=== PATIENT | male | born 1935 | race Caucasian/White ===

== ENCOUNTER 2017-01-01 12:13 | Observation (INO) | payer OTHER ==
--- NOTE | 2017-01-01 13:57 | EDPHY ---
H & P Time Seen by Provider: 01/01/17 12:27 Smoking Status: Never smoked Constitutional: Initial Vital Signs Temperature (C) 36.5 C 01/01/17 12:14 Heart Rate 78 01/01/17 12:14 Respiratory Rate 16 01/01/17 12:14 Blood Pressure 157/81 H 01/01/17 12:14 O2 Sat (%) 90 L 01/01/17 12:14 O2 Delivery Mode Room Air Allergies/Adverse Reactions: Sulfa (Sulfonamide Antibiotics) Allergy (Unknown, Verified 05/06/13 01:11) Unknown Home Medications: Medication Instructions Recorded CALCIUM 1,200 MG TABLET CHEW 10/18/09 Folic Acid 10/18/09 Lisinopril 10/18/09 VITAMIN A & D 10/18/09 COUMADIN 10/20/09 PRAVASTATIN SODIUM 05/20/10 VIT E ACETATE/NONOXYNOL/TAVARES V 10/28/10 Metaxalone [Skelaxin 800 mg (RX)] 800 mg PO TID PRN #10 tab 05/06/13 MDM/Departure - Depart Referrals: Dick Bhandari DO [Primary Care Provider] - As per Instructions
--- NOTE | 2017-01-01 14:26 | EDPHY ---
H & P Stated Complaint: S/F ON 12/20, HERE TODAY L FOOT PAIN/SWELLING Time Seen by Provider: 01/01/17 12:27 HPI/ROS: CHIEF COMPLAINT: left leg pain HISTORY OF PRESENT ILLNESS: 81-year-old male presents emergency department complaining of worsening left leg pain. 1 week ago the patient slipped while in the bathroom and scraped his scruggs. He was seen by a nurse practitioner 5 days ago and placed on Keflex for his cellulitis, he was then seen 3 days ago for recheck. Patient reports over the last 2 days his pain, swelling have increased, redness has not worsened. He denies fevers or chills, no chest pain or shortness of breath. Patient has a history of blood clots in this left leg and PE over 20 years ago, he takes Coumadin daily for this. Patient reports most of his pain is in his lateral foot, worse with weight-bearing that improved after he has walked on it for a few minutes. REVIEW OF SYSTEMS: A comprehensive 10 point review of systems is otherwise negative aside from elements mentioned in the history of present illness. Source: Patient, Family Exam Limitations: No limitations - Personal History Current Tetanus/Diphtheria Vaccine: Yes Current Tetanus Diphtheria and Acellular Pertussis (TDAP): Yes - Medical/Surgical History Hx Asthma: No Hx Chronic Respiratory Disease: No Hx Diabetes: No Hx Cardiac Disease: No Hx Renal Disease: No Hx Cirrhosis: No Hx Alcoholism: No Hx HIV/AIDS: No Hx Splenectomy or Spleen Trauma: No Other PMH: PMH- DVT. PSH- THROAT, TONSICLECTOMY, ORTHO - Social History Smoking Status: Never smoked Constitutional: Initial Vital Signs Temperature (C) 36.5 C 01/01/17 12:14 Heart Rate 78 01/01/17 12:14 Respiratory Rate 16 01/01/17 12:14 Blood Pressure 157/81 H 01/01/17 12:14 O2 Sat (%) 90 L 01/01/17 12:14 O2 Delivery Mode Room Air Allergies/Adverse Reactions: Sulfa (Sulfonamide Antibiotics) Allergy (Unknown, Verified 05/06/13 01:11) Unknown Home Medications: Medication Instructions Recorded CALCIUM 1,200 MG TABLET CHEW 10/18/09 Folic Acid 10/18/09 Lisinopril 10/18/09 VITAMIN A & D 10/18/09 COUMADIN 10/20/09 PRAVASTATIN SODIUM 05/20/10 VIT E ACETATE/NONOXYNOL/TAVARES V 10/28/10 Metaxalone [Skelaxin 800 mg (RX)] 800 mg PO TID PRN #10 tab 05/06/13 Medical Decision Making - Diagnostics Imaging: Foot and ankle x-ray independently reviewed by me- Impression: Soft tissue injury. No acute fracture. Dictated By: Brody Willingham MD Left lower leg ultrasound- Impression: No deep venous thrombosis in the left lower extremity. Findings discussed with Amy Juarez NP at 16:19 hour, 01/01/2017. Dictated By: Yunior Gil MD ED Course/Re-evaluation: IV established, CBC, chemistry panel, INR obtained, x-ray of left foot and ankle ordered which show no evidence of fracture, ultrasound left lower extremity ordered to rule out DVT. Vital signs are stable, he is afebrile. INR is 3.45, CBC and chemistry panel are unremarkable, ultrasound of left lower extremity is negative for DVT. Patient will be admitted for cellulitis of his left lower extremity that has failed cephalexin outpatient therapy. There is no evidence for septic joint. Patient is comfortable with this plan. - Data Points Laboratory Results: Laboratory Results 01/01/17 13:57 01/01/17 13:52 01/01/17 01/01/17 01/01/17 13:57 13:57 13:52 WBC 7.09 10^3/uL 10^3/uL (3.80-9.50) RBC 4.73 10^6/uL 10^6/uL (4.40-6.38) Hgb 16.4 g/dL g/dL (13.7-17.5) Hct 46.3 % % (40.0-51.0) MCV 97.9 fL fL (81.5-99.8) MCH 34.7 pg H pg (27.9-34.1) MCHC 35.4 g/dL g/dL (32.4-36.7) RDW 13.4 % % (11.5-15.2) Plt Count 156 10^3/uL 10^3/uL (150-400) MPV 10.8 fL fL (8.7-11.7) Neut % (Auto) 72.2 % % (39.3-74.2) Lymph % (Auto) 18.6 % % (15.0-45.0) [place] % (Auto) 6.8 % % (4.5-13.0) Eos % (Auto) 1.7 % % (0.6-7.6) Baso % (Auto) 0.6 % % (0.3-1.7) Nucleat RBC Rel Count 0.0 % % (0.0-0.2) Absolute Neuts (auto) 5.12 10^3/uL 10^3/uL (1.70-6.50) Absolute Lymphs (auto) 1.32 10^3/uL 10^3/uL (1.00-3.00) Absolute Monos (auto) 0.48 10^3/uL 10^3/uL (0.30-0.80) Absolute Eos (auto) 0.12 10^3/uL 10^3/uL (0.03-0.40) Absolute Basos (auto) 0.04 10^3/uL 10^3/uL (0.02-0.10) Absolute Nucleated RBC 0.00 10^3/uL 10^3/uL (0-0.01) Immature Gran % 0.1 % % (0.0-1.1) Immature Gran # 0.01 10^3/uL 10^3/uL (0.00-0.10) PT 35.4 SEC H SEC (12.0-15.0) INR 3.46 H (0.83-1.16) Sodium 141 mEq/L mEq/L (134-144) Potassium 3.9 mEq/L mEq/L (3.5-5.2) Chloride 108 mEq/L mEq/L (97-110) Carbon Dioxide 23 mEq/l mEq/l (22-31) Anion Gap 10 mEq/L mEq/L (8-16) BUN 20 mg/dL mg/dL (7-23) Creatinine 0.9 mg/dL mg/dL (0.7-1.3) Estimated GFR > 60 Glucose 111 mg/dL H mg/dL (70-100) Calcium 8.7 mg/dL mg/dL (8.5-10.4) Departure - Departure Disposition: [facility] Clinical Impression: Left leg cellulitis Condition: Good
[2017-01-01 14:42] LABS: % IMMATURE GRANULYOCYTES 0.1 % (0.0-1.1); ABSOLUTE IMMATURE GRANULOCYTES 0.01 10^3/uL (0.00-0.10); ADD DIFF? NO; ADD MORPH? NO; ADD SCAN? NO; ATYPICAL LYMPHOCYTE FLAG 0 (0-99); FRAGMENT RBC FLAG 0 (0-99); HEMATOCRIT 46.3 % (40.0-51.0); HEMOGLOBIN 16.4 g/dL (13.7-17.5); LEFT SHIFT FLG 0 (0-99); LIPEMIA HEMOLYSIS FLAG 90 (0-99); MEAN CELL HEMOGLOBIN 34.7 pg (27.9-34.1); MEAN CELL HEMOGLOBIN CONCENTR. 35.4 g/dL (32.4-36.7); MEAN CELL VOLUME 97.9 fL (81.5-99.8); MEAN PLATELET VOLUME 10.8 fL (8.7-11.7); PLATELET CLUMPS FLAG 0 (0-99); PLATELET COUNT 156 10^3/uL (150-400); RED BLOOD CELL COUNT 4.73 10^6/uL (4.40-6.38); RED CELL DISTRIBUTION WIDTH 13.4 % (11.5-15.2)
[2017-01-01 14:54] LABS: INR 3.46 (0.83-1.16); PROTIME(PATIENT) 35.4 SEC (12.0-15.0)
[2017-01-01 15:04] LABS: ANION GAP 10 mEq/L (8-16); CALCIUM 8.7 mg/dL (8.5-10.4); CARBON DIOXIDE 23 mEq/l (22-31); CHLORIDE 108 mEq/L (97-110); CREATININE 0.9 mg/dL (0.7-1.3); GLOMERULAR FILTRATION RATE > 60; GLUCOSE 111 mg/dL (70-100); POTASSIUM 3.9 mEq/L (3.5-5.2); SODIUM 141 mEq/L (134-144)
[2017-01-01] MEDS ORDERED: NON-FORMULARY NEW DRUG (Pravastatin Sodium [Pravachol] 80 MG) PO SCH (16:00)
[2017-01-01] MEDS ORDERED: VANCOMYCIN 1.25 GM in D5W 250 ML IV ONE (16:40)
--- NOTE | 2017-01-01 17:52 | PDGENHP ---
History and Physical - Chief Complaint Acute leg pain - History of Present Illness Primary care provider: Dr. Bhandari HPI: 81-year-old male presents with acute leg pain located in the left lateral foot, characterized as sharp, exacerbated by weight-bearing, alleviated by resting and elevation. Patient reports that the onset of symptoms approximately 1 week ago when he fell in the shower/tub and scraped the proximal aspect of his left lower leg. He began experiencing some swelling and erythema thereafter. He now has some associated swelling, tenderness, pain. Duration has been persistent since that time and he was seen by Dr. Cox in the [facility]. Was initiated on Keflex 5 days ago and he has not noted any particular improvement. His otherwise been adherent to all of his home medications and denies any other complaints. History Information - Allergies/Home Medication List Allergies/Adverse Reactions: Sulfa (Sulfonamide Antibiotics) Allergy (Unknown, Verified 05/06/13 01:11) Unknown Home Medications: Herbals/Supplements -Info Only 1 ea PO DAILY 10/18/09 [Last Taken 12/31/16] Warfarin Sodium [Coumadin 5MG (*)] 5 mg PO MOWEFR@16 10/20/09 [Last Taken ] Pravastatin Sodium [Pravachol] 80 mg PO DAILY@16 05/20/10 [Last Taken 12/31/16] Calcium Carb W/Vit D [Calcium Carb W/Vit D 500/200 (*)] 500 mg PO BID 01/01/17 [ Last Taken 12/31/16] Cephalexin [Keflex (*)] 500 mg PO QID 01/01/17 [Last Taken 01/01/17 2 DOSES] Warfarin Sodium [Coumadin 5MG (*)] 2.5 mg PO SUTUTHSA@16 01/01/17 [Last Taken ] I have personally reviewed and updated: family history, medical history, social history, surgical history - Past Medical History DVT (1995), hypertension, hyperlipidemia, pulmonary embolism (2008) Additional medical history: Zenker's diverticulum. Osteoporosis - Surgical History Additional surgical history: Tonsillectomy. Ankle surgery - Family History Additional family history: Father with CHF at age 77 - Social History Smoking Status: Former smoker Alcohol Use: Occasionally Drug Use: None Additional social history: Works en[employer], recently had a negative pulmonary evaluation at [facility] Review of Systems ROS: 10pt was reviewed & negative except for what was stated in HPI & below Skin: Reports: other (Erythema, edema, tenderness left lower extremity) Physical Exam Temp Pulse Resp BP Pulse Ox 36.5 C 59 L 18 175/95 H 92 01/01/17 12:14 01/01/17 17:31 01/01/17 17:31 01/01/17 17:31 01/01/17 17:31 Constitutional: no apparent distress, appears nourished, not in pain, No chronically ill appearing Eyes: PERRL, anicteric sclera, EOMI Ears, Nose, Mouth, Throat: moist mucous membranes, hearing normal, ears appear normal, no oral mucosal ulcers Cardiovascular: regular rate and rhythym, no murmur, rub, or gallop, edema (1+ left lower extremity edema) Respiratory: no respiratory distress, no rales or rhonchi, clear to auscultation Gastrointestinal: normoactive bowel sounds, soft, non-tender abdomen, no palpable masses Skin: other (Blanching erythema left lower extremity on the anterior aspect of his scruggs as well as the lateral aspect of his left foot, tender, scabbed abrasion inferior to his knee) Musculoskeletal: other (Full range of motion left ankle and left knee without any pain) Neurologic: AAOx3, sensation intact bilaterally, No weakness Psychiatric: interacting appropriately, not anxious, not encephalopathic, thought process linear Lab Data & Imaging Review 01/01/17 13:57 01/01/17 13:52 WBC 7.09 10^3/uL (3.80-9.50) 01/01/17 13:57 RBC 4.73 10^6/uL (4.40-6.38) 01/01/17 13:57 Hgb 16.4 g/dL (13.7-17.5) 01/01/17 13:57 Hct 46.3 % (40.0-51.0) 01/01/17 13:57 MCV 97.9 fL (81.5-99.8) 01/01/17 13:57 MCH 34.7 pg (27.9-34.1) H 01/01/17 13:57 MCHC 35.4 g/dL (32.4-36.7) 01/01/17 13:57 RDW 13.4 % (11.5-15.2) 01/01/17 13:57 Plt Count 156 10^3/uL (150-400) 01/01/17 13:57 MPV 10.8 fL (8.7-11.7) 01/01/17 13:57 Neut % (Auto) 72.2 % (39.3-74.2) 01/01/17 13:57 Lymph % (Auto) 18.6 % (15.0-45.0) 01/01/17 13:57 [place] % (Auto) 6.8 % (4.5-13.0) 01/01/17 13:57 Eos % (Auto) 1.7 % (0.6-7.6) 01/01/17 13:57 Baso % (Auto) 0.6 % (0.3-1.7) 01/01/17 13:57 Nucleat RBC Rel Count 0.0 % (0.0-0.2) 01/01/17 13:57 Absolute Neuts (auto) 5.12 10^3/uL (1.70-6.50) 01/01/17 13:57 Absolute Lymphs (auto) 1.32 10^3/uL (1.00-3.00) 01/01/17 13:57 Absolute Monos (auto) 0.48 10^3/uL (0.30-0.80) 01/01/17 13:57 Absolute Eos (auto) 0.12 10^3/uL (0.03-0.40) 01/01/17 13:57 Absolute Basos (auto) 0.04 10^3/uL (0.02-0.10) 01/01/17 13:57 Absolute Nucleated RBC 0.00 10^3/uL (0-0.01) 01/01/17 13:57 Immature Gran % 0.1 % (0.0-1.1) 01/01/17 13:57 Immature Gran # 0.01 10^3/uL (0.00-0.10) 01/01/17 13:57 PT 35.4 SEC (12.0-15.0) H 01/01/17 13:57 INR 3.46 (0.83-1.16) H 01/01/17 13:57 Sodium 141 mEq/L (134-144) 01/01/17 13:52 Potassium 3.9 mEq/L (3.5-5.2) 01/01/17 13:52 Chloride 108 mEq/L (97-110) 01/01/17 13:52 Carbon Dioxide 23 mEq/l (22-31) 01/01/17 13:52 Anion Gap 10 mEq/L (8-16) 01/01/17 13:52 BUN 20 mg/dL (7-23) 01/01/17 13:52 Creatinine 0.9 mg/dL (0.7-1.3) 01/01/17 13:52 Estimated GFR > 60 01/01/17 13:52 Glucose 111 mg/dL (70-100) H 01/01/17 13:52 Calcium 8.7 mg/dL (8.5-10.4) 01/01/17 13:52 Assessment & Plan Assessment: 81-year-old male presents with acute left lower extremity cellulitis refractory to outpatient oral antibiotics Plan: 1. Cellulitis. Left lower extremity, most likely secondary to traumatic skin break inferior to the knee with extension distally, evidenced by erythema, edema , tenderness -no evidence of DVT on ultrasound -no evidence of fracture on x-ray -refractory to oral Keflex received appropriately in the outpatient setting -initiated on IV vancomycin in the emergency department, continue q.12 hours -reassess affected area in the a.m. and if improving, recommend adjusting to oral clindamycin for a 7 day course and outpatient follow up with Dr. Bhandari 2. History of pulmonary embolism. Reviewed outside records including 2008 history and physical by Mary Lou Delgado, characterizing patient's presentation for shortness of breath, found to have a pulmonary embolism, initiated on Lovenox and Coumadin at that time -he has a supratherapeutic INR most likely secondary to Keflex interaction with Coumadin -will hold Coumadin today -repeat INR in a.m., continue Coumadin tomorrow 3. Hypertension. Chronic, continue patient's home medications Diet. Cardiac Prophylaxis. High risk patient, currently systemically anticoagulated Code status. Full per patient, his is MPOA Disposition. Anticipated discharge is 01/02/2017, pending clinical improvement with IV antibiotics overnight.
[2017-01-01] MEDS ORDERED: ONDANSETRON 4 MG/2 ML VIAL IVP PRN (17:55)
[2017-01-01] MEDS ORDERED: oxyCODONE IR 5 MG TAB PO PRN (17:55)
[2017-01-01] MEDS ORDERED: ACETAMINOPHEN 325 MG TAB PO PRN (17:55)
[2017-01-01] MEDS ORDERED: ONDANSETRON DISINTEGRATING 4 MG TAB PO PRN (17:55)
[2017-01-01] MEDS ORDERED: PRAVASTATIN SODIUM 40 MG TAB PO SCH (18:30)
[2017-01-01] MEDS: CALCIUM CARB W/VIT D 500 MG TAB PO SCH (20:39)
[2017-01-02 05:15] LABS: % IMMATURE GRANULYOCYTES 0.2 % (0.0-1.1); ABSOLUTE IMMATURE GRANULOCYTES 0.01 10^3/uL (0.00-0.10); ADD DIFF? NO; ADD MORPH? NO; ADD SCAN? NO; ATYPICAL LYMPHOCYTE FLAG 0 (0-99); FRAGMENT RBC FLAG 0 (0-99); HEMATOCRIT 46.9 % (40.0-51.0); HEMOGLOBIN 15.9 g/dL (13.7-17.5); LEFT SHIFT FLG 0 (0-99); LIPEMIA HEMOLYSIS FLAG 90 (0-99); MEAN CELL HEMOGLOBIN 32.8 pg (27.9-34.1); MEAN CELL HEMOGLOBIN CONCENTR. 33.9 g/dL (32.4-36.7); MEAN CELL VOLUME 96.7 fL (81.5-99.8); MEAN PLATELET VOLUME 10.8 fL (8.7-11.7); PLATELET CLUMPS FLAG 0 (0-99); PLATELET COUNT 150 10^3/uL (150-400); RED BLOOD CELL COUNT 4.85 10^6/uL (4.40-6.38); RED CELL DISTRIBUTION WIDTH 13.5 % (11.5-15.2)
[2017-01-02 05:20] LABS: INR 3.02 (0.83-1.16); PROTIME(PATIENT) 31.7 SEC (12.0-15.0)
[2017-01-02 05:26] LABS: ANION GAP 10 mEq/L (8-16); CALCIUM 9.1 mg/dL (8.5-10.4); CARBON DIOXIDE 25 mEq/l (22-31); CHLORIDE 107 mEq/L (97-110); GLOMERULAR FILTRATION RATE > 60; GLUCOSE 101 mg/dL (70-100); SODIUM 142 mEq/L (134-144)
[2017-01-02] MEDS ORDERED: VANCOMYCIN HCL/NORMAL SALINE 250 ML IV SCH (06:00)
--- NOTE | 2017-01-02 08:25 | HOSPPROG ---
Hospitalist Progress Note Assessment/Plan: 81-year-old male presents with acute left lower extremity cellulitis refractory to outpatient oral antibiotics. Today is my first encounter with the patient/ chart reviewed. Left lower extremity Cellulitis. -secondaryto traumatic skin break inferior to the knee -no evidence of DVT on ultrasound -treated w Keflex OP without improvement -no evidence of fracture on x-ray -wound care to see -will dc home on doxycycline and have him f/u with his PCP History of pulmonary embolism. -INR 3 Hypertension. -sable Diet. Cardiac Prophylaxis. Systemically anticoagulated Subjective: Tomasz is anxious to go/ says his leg is much better. Objective: Vital Signs Temp Pulse Resp BP Pulse Ox 36.8 C 56 L 17 145/65 H 92 01/02/17 03:50 01/02/17 03:50 01/02/17 03:50 01/02/17 03:50 01/02/17 03:50 Laboratory Results 01/02/17 04:12 01/02/17 04:12 01/01/17 01/02/17 01/03/17 05:59 05:59 05:59 Intake Total 550 Output Total 250 Balance 300 PT 31.7 SEC (12.0-15.0) H 01/02/17 04:12 INR 3.02 (0.83-1.16) H 01/02/17 04:12 - Physical Exam Constitutional: no apparent distress, appears nourished, not in pain Eyes: PERRL Ears, Nose, Mouth, Throat: hard of hearing Cardiovascular: regular rate and rhythym Respiratory: no respiratory distress Gastrointestinal: normoactive bowel sounds Skin: other (left scruggs area with scab/ redness around this, around calf and ankle area/ patient states it is much improved) Musculoskeletal: full muscle strength Neurologic: AAOx3 Psychiatric: interacting appropriately, not anxious ICD10 Worksheet Patient Problems: Problems Problem Status Onset Left leg cellulitis Acute
[2017-01-02] MEDS: CALCIUM CARB W/VIT D 500 MG TAB PO SCH (08:46)
[2017-01-02] MEDS ORDERED: Herbals/Supplements -Info Only PO SCH (09:00)
[2017-01-02 09:28] VITALS: RESP 20
[2017-01-02 12:06] VITALS: BP 140/70; PULSE 64; TEMP 97.9; O2SAT 94
--- NOTE | 2017-01-02 13:32 | WOCRNPDOC ---
WOCRN Advanced Assessment Note - Skin Integrity Problem, Advanced Assess Left Leg Dressing Type: Open to Air Fela Wound Tissue: Erythema Wound Bed Constitution: Scab Site Measurement - Head-to-Toe Length X Width X Depth (cm): 2.1x0.5xscab Skin Integrity Problem Comment: Cleaned with wound cleanser. Skin prep fela wound. Silvasorb to wound bed covered with hydrocolloid. Reviewed plan with patient and . Supplies for x2 dressing changes given.
--- NOTE | 2017-01-02 13:52 | GDS ---
[f rep st] DISCHARGE SUMMARY DISCHARGE DIAGNOSES: 1. Left lower extremity cellulitis. 2. History of pulmonary embolism. 3. Hypertension. Briefly, the patient is a delightful 81-year-old gentleman who presented with leg pain in the left lateral foot area as well as mid left scruggs area. He fell approximately a week ago. He fell in the shower and scraped the proximal aspect of his left lower leg. He was treated with Keflex in the out patient setting but was having difficulty with walking. He came to [facility] for further evaluation. He had an ultrasound performed which showed no DVT. He had an x-ray performed which showed no evidence of a fracture. He was treated with vancomycin and he improved. He will be discharged home with doxycycline and further followup with his primary care provider. HOSPITAL COURSE: 1. Left lower extremity cellulitis. This is secondary to a traumatic skin break. He is doing markedly better. Recommended that he elevate his leg 3-5 times a day. I will discharge him on doxycycline and have him follow up with his primary care provider. 2. History of PE. INR is 3. Will have him hold his Coumadin today and restart tomorrow. He will get his INR checked on Thursday. 3. Hypertension, stable. PENDING LABS AND TESTS: None. CONDITION AT DISCHARGE: Stable. Blood pressure is 140/70. Heart rate is 64. Respiratory rate is 20. O2 sats on room air 94%. Temperature is 36.6 Celsius. MEDICATIONS AT DISCHARGE: Please see the EMR. DISCHARGE INSTRUCTIONS: To elevate his leg. Take the antibiotic as prescribed and to get his INR checked on Thursday. /[id number]/MODL MTDD
[2017-01-02] MEDS ORDERED: WARFARIN SODIUM 5 MG TAB PO SCH (16:00)
== END 2017-01-02 14:20 | disposition home or self-care (01) ==
LOC: INTOOBSV 16:38 → F3N 17:55
PROVIDERS: ADMIT Internal Medicine; ATTEND Hospitalist
DX: L03.116 Cellulitis of left lower limb (principal); S80.812S Abrasion, left lower leg, sequela; W18.2XXS Fall in (into) shower or empty bathtub, sequela; I10 Essential (primary) hypertension; Z86.711 Personal history of pulmonary embolism; Z79.01 Long term (current) use of anticoagulants
CPT/HCPCS: 73610; 73630; 93971; 97161; G0378; G8978; G8979; G8980; J3370; 96365

== ENCOUNTER → 2017-02-09 | Outpatient (CLI) | payer OTHER | LOC: CIMAGING 08:44 | PROVIDERS: ATTEND Family Medicine | DX: R10.33 Periumbilical pain (principal) | CPT/HCPCS: 76700-PO ==

== ENCOUNTER → 2017-02-25 | Outpatient (CLI) | payer OTHER ==
[~2017-02-25] MED LIST: IOPAMIDOL (ISOVUE-300) 100 ML BTL IV ONE
== END ==
LOC: CIMAGING 11:14
PROVIDERS: ATTEND Family Medicine
DX: R10.33 Periumbilical pain (principal); N20.0 Calculus of kidney; K57.30 Diverticulosis of large intestine without perforation or abscess without bleeding; N40.0 Benign prostatic hyperplasia without lower urinary tract symptoms
CPT/HCPCS: 74177; Q9967

== ENCOUNTER 2017-04-01 08:27 | Emergency (ER) | payer OTHER ==
--- NOTE | 2017-04-01 08:48 | EDPHY ---
H & P Time Seen by Provider: 04/01/17 08:34 HPI/ROS: HPI Right wrist and forearm injury. 82-year-old male by private vehicle. This patient reports that he slipped on a wet surface, fell forward but not to the ground, scraped his right forearm, distal ventral aspect on the ground. He denies any bony pain. He sustained a skin tear to this area. He is on Coumadin for pulmonary embolism. He denies hitting his head. No neck pain. No headache. No loss of sensation or weakness in his extremities. No other lacerations, injuries or complaints. He has had a tetanus shot within the last 5 years. ROS: Constitutional: No fever, no chills. No weakness. Eyes: No discharge. No changes in vision. ENT: No sore throat. No nasal congestion or rhinorrhea. Respiratory: No cough. No shortness of breath. Cardiac: No chest pain, no palpitations. Gastrointestinal: No abdominal pain, no vomiting, no diarrhea. Genitourinary: No hematuria. No dysuria or increased frequency with urination. Musculoskeletal: No back pain. No neck pain. No myalgias or arthralgias. Skin: No rashes. As above. Neurological: No headache. No focal weakness or altered sensation. Past medical history: He is on Coumadin secondary to pulmonary embolism. He also has a history of DVT. Hypertension, hyperlipidemia, osteoporosis, Zenker' s diverticulum. Social history: Former smoker. Here by himself. Worked [employer]. Physical Exam: General Appearance: Alert, no distress. This patient is responding to questions appropriately and in full sentences. This patient appears well- hydrated and well-nourished. Head: Normocephalic atraumatic. Face: Facial bones are stable on palpation. Eyes: Pupils equal and round and reactive to light, no pallor or injection. No lid erythema or edema. Neurological: Motor sensory function is intact. Cranial nerves are normal. Cerebellar function intact. Skin: Warm and dry, no rashes. No lacerations, abrasions or contusions. Musculoskeletal: Neck is supple and nontender. The trachea is midline. No midline cervical, thoracic, lumbar or sacral tenderness on palpation. No flank tenderness on palpation. Right upper extremity examination: Is significant for a skin tear measuring about 5 cm, ventral radial aspect of the distal forearm. There is associated ecchymosis involving this area and then spreading distally to the greater thenar eminence. There is no pain elicited on axial compression of all digits of the right hand, metacarpals, the wrist and the forearm. No snuffbox tenderness on palpation. There is no bony deformity or step-off on palpation of the right distal forearm and bony aspects of the right hand. The right upper extremity is neurovascularly intact. Extremities are symmetrical, full range of motion otherwise. All joints in the bilateral upper and bilateral lower extremities range without pain or impingement otherwise. No tenderness on palpation of the long bones in the bilateral upper and bilateral lower extremities. Psychiatric: No agitation. No depression. Database: EKG: Imaging: Right wrist and forearm x-ray series: Negative for fracture, subluxation, dislocation. Interpreted by me. Procedures: Procedure: Laceration repair. Verbal consent was obtained from the patient. The 5 cm skin tear on the right distal ventral forearm. The wound was irrigated, draped and explored to its base with a gloved finger. There were no deep structures involved. No tendon injury was identified. No foreign body identified. The wound was repaired with skin adhesive. The wound repair was tolerated well and there were no complications. The procedure was performed by myself. Emergency department course: X-ray results reviewed with the patient. Skin tear was thoroughly cleaned, after cleansing, the skin was tacked down using skin adhesive glue. Wound care was discussed with the patient. Follow-up and return to emergency department precautions reviewed. All of his questions were answered. He was discharged in good condition. Differential Diagnosis: The differential diagnosis on this patient includes but is not limited to skin tear and contusion to right distal forearm. Fracture, subluxation, dislocation , head injury, other significant traumatic injury unlikely. This represents a partial list of diagnoses considered. These considerations are based on history , physical exam, past history, reassessment and diagnostic testing. Smoking Status: Former smoker Constitutional: Initial Vital Signs Temperature (C) 36.4 C 04/01/17 08:54 Heart Rate 83 04/01/17 08:54 Respiratory Rate 16 04/01/17 08:54 Blood Pressure 157/80 H 04/01/17 08:54 O2 Sat (%) 91 L 04/01/17 08:54 O2 Delivery Mode Room Air Allergies/Adverse Reactions: Sulfa (Sulfonamide Antibiotics) Allergy (Unknown, Verified 05/06/13 01:11) Unknown alendronate sodium [From Fosamax] Allergy (Verified 04/01/17 08:45) Home Medications: Medication Instructions Recorded Herbals/Supplements -Info Only 1 ea PO DAILY 10/18/09 Warfarin Sodium [Coumadin 5MG (*)] 5 mg PO MOWEFR@16 10/20/09 Pravastatin Sodium [Pravachol] 80 mg PO DAILY@05/20/10 Calcium Carb W/Vit D [Calcium Carb 500 mg PO BID 01/01/17 W/Vit D 500/200 (*)] Warfarin Sodium [Coumadin 5MG (*)] 2.5 mg PO SUTUTHSA@16 01/01/17 Aspirin 81mg (*) 04/01/17 VITAMIN D 04/01/17 VITAMIN E 04/01/17 Medical Decision Making - Diagnostics Imaging Results: Imaging Impressions Forearm X-Ray 04/01/17 08:40 Impression: 1. No acute fracture of the radius and ulna. 2. 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 Wrist X-Ray 04/01/17 08:40 Impression: 1. No discernible acute fracture. 2. 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 Departure - Departure Disposition: Home, Routine, Self-Care Clinical Impression: Skin tear of right upper extremity Condition: Good Instructions: Skin Adhesive Care (ED), Skin Tear (ED), Steristrips (ED) Additional Instructions: Read and follow provided instructions. Follow-up with your primary care physician in 2-3 days for re-evaluation. Return to the emergency department for bleeding, pain, swelling, discoloration or other serious concerns. Referrals: Dick Bhandari DO [Primary Care Provider] - As per Instructions
[2017-04-01 08:56] VITALS: BP 157/80; PULSE 83; RESP 16; TEMP 97.5; O2SAT 91
[2017-04-01] MEDS ORDERED: SKIN ADHESIVE (DERMABOND) 1 EACH TP ONE (09:12)
== END 2017-04-01 10:00 | disposition home or self-care (01) ==
LOC: CED 08:27
PROC: 0HQDXZZ Repair Right Lower Arm Skin, External Approach (ICD-10-PCS; principal; 2017-04-01)
DX: S51.811A Laceration without foreign body of right forearm, initial encounter (principal); I10 Essential (primary) hypertension; Z79.01 Long term (current) use of anticoagulants; Z79.82 Long term (current) use of aspirin; Z87.891 Personal history of nicotine dependence; W01.0XXA Fall on same level from slipping, tripping and stumbling without subsequent striking against object, initial encounter
CPT/HCPCS: 73090-PO; 73110-PO

== ENCOUNTER 2018-03-08 11:50 | Emergency (ER) | payer OTHER ==
[2018-03-08 12:04] VITALS: BP 158/78
--- NOTE | 2018-03-08 12:22 | EDPHY ---
H & P Time Seen by Provider: 03/08/18 12:17 HPI/ROS: HPI Skin tear right hand. 83-year-old male by private vehicle with his . This patient reports that he was sitting in a chair. His right hand was on his right thigh. His dog was sitting next to him. His dog lifted his paw a caught the dorsal aspect of his right hand causing a skin tear to this area. No other complaint. He is right- hand dominant. ROS: Constitutional: No fever, no chills. No weakness. Musculoskeletal: As above. Skin: As above. Neurological: No focal weakness or altered sensation. Past medical history: Left arm paralysis, tonsillectomy, history of DVT on Coumadin. Social history: Physical Exam: General Appearance: Alert, no distress. This patient is responding to questions appropriately and in full sentences. This patient appears well- hydrated and well-nourished. Eyes: Pupils equal and round no pallor or injection. No lid edema, erythema or injection. Right hand exam: Significant for a skin tear mid dorsum of the right hand about the size of a silver dollar. No bony deformity or tenderness on palpation of the bony aspects of the hand. No pain on axial compression of the digits and metacarpal bones. The right hand is neurovascularly intact. Neurological: Motor sensory function is grossly intact. Cranial nerves are normal. Gait is normal. Skin: Warm and dry, no rashes. As above. Extremities are symmetrical. All joints range without pain or impingement. Psychiatric: No agitation. No depression. Database: EKG: Imaging: Procedures: Procedure: Laceration repair. Verbal consent was obtained from the patient. The 4 cm skin tear on the dorsal right hand was anesthetized in the usual fashion. The wound was irrigated, draped and explored to its base with a gloved finger. There were no deep structures involved. No tendon injury was identified. The wound was repaired with skin adhesive. The wound repair was tolerated well and no complications. The procedure was performed by myself. Emergency department course: Wound area was cleansed and dried thoroughly with mild soap. Dermabond was applied to the skin edges. Some of the skin had been lost so approximation was not perfect. Non adherent dressing applied. Patient feels comfortable going home. Wound care and follow-up discussed with him. All of his questions were answered. He was discharged from the emergency department in good condition with his . Differential Diagnosis: The differential diagnosis on this patient includes but is not limited to skin tear to right hand. Bony injury, retained foreign body, suturable laceration unlikely. This represents a partial list of diagnoses considered. These considerations are based on history, physical exam, past history, reassessment and diagnostic testing. Smoking Status: Former smoker Constitutional: Initial Vital Signs Temperature (C) 36.4 C 03/08/18 11:59 Heart Rate 72 03/08/18 11:59 Respiratory Rate 16 03/08/18 11:59 Blood Pressure 158/78 H 03/08/18 11:59 O2 Sat (%) 94 03/08/18 11:59 O2 Delivery Mode Room Air Allergies/Adverse Reactions: Sulfa (Sulfonamide Antibiotics) Allergy (Unknown, Verified 03/08/18 12:04) Unknown alendronate sodium [From Fosamax] Allergy (Verified 03/08/18 12:04) Home Medications: Medication Instructions Recorded Herbals/Supplements -Info Only 1 ea PO DAILY 10/18/09 Warfarin Sodium [Coumadin 5MG (*)] 5 mg PO MOWEFR@16 10/20/09 Pravastatin Sodium [Pravachol] 80 mg PO DAILY@05/20/10 Calcium Carb W/Vit D [Calcium Carb 500 mg PO BID 01/01/17 W/Vit D 500/200 (*)] Warfarin Sodium [Coumadin 5MG (*)] 2.5 mg PO SUTUTHSA@16 01/01/17 Aspirin 81mg (*) 04/01/17 VITAMIN D 04/01/17 VITAMIN E 04/01/17 Departure - Departure Disposition: Home, Routine, Self-Care Clinical Impression: Skin tear of right hand without complication Condition: Good Instructions: Skin Tear (ED) Additional Instructions: Read and follow provided instructions. Follow-up with your primary care physician in 2-3 days for wound check Take your medication as prescribed. Return to the emergency department for bleeding, pain, discoloration, swelling, fever or other serious concerns. Referrals: Dick Bhandari DO [Primary Care Provider] - As per Instructions
[2018-03-08] MEDS ORDERED: SKIN ADHESIVE (DERMABOND) 1 EACH TP ONE (12:27)
== END 2018-03-08 12:49 | disposition home or self-care (01) ==
LOC: CED 11:50
PROC: 0HQFXZZ Repair Right Hand Skin, External Approach (ICD-10-PCS; principal; 2018-03-08)
DX: S61.411A Laceration without foreign body of right hand, initial encounter (principal); Z79.01 Long term (current) use of anticoagulants; Z79.82 Long term (current) use of aspirin; Z87.891 Personal history of nicotine dependence; W23.1XXA Caught, crushed, jammed, or pinched between stationary objects, initial encounter; Y99.8 Other external cause status; Y93.89 Activity, other specified

== ENCOUNTER 2018-04-01 11:32 | Emergency (ER) | payer OTHER ==
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
[2018-04-01 12:54] VITALS: BP 157/81
== END 2018-04-01 12:52 | disposition home or self-care (01) ==
LOC: CED 11:32
DX: S42.035A Nondisplaced fracture of lateral end of left clavicle, initial encounter for closed fracture (principal); Z79.01 Long term (current) use of anticoagulants; Z79.82 Long term (current) use of aspirin; Z87.891 Personal history of nicotine dependence; W18.39XA Other fall on same level, initial encounter
CPT/HCPCS: 73030; 99283; A4565

== ENCOUNTER → 2018-04-12 | Outpatient (CLI) | payer OTHER | LOC: FLAB 10:40 | PROVIDERS: ATTEND Physician Assistant | DX: J98.4 Other disorders of lung (principal); R91.8 Other nonspecific abnormal finding of lung field ==

== ENCOUNTER → 2018-05-12 | Outpatient (CLI) | payer OTHER | LOC: FIMAGING 12:48 → EDSTATUS 12:49 | PROVIDERS: ATTEND Physician Assistant | DX: J98.4 Other disorders of lung (principal) ==

== ENCOUNTER → 2018-12-24 | Outpatient (CLI) | payer OTHER | LOC: FIMAGING 14:43 | PROVIDERS: ATTEND Physician Assistant | DX: J40 Bronchitis, not specified as acute or chronic (principal) ==

== ENCOUNTER → 2019-03-03 | Outpatient (CLI) | payer OTHER | LOC: FIMAGING 12:49 | PROVIDERS: ATTEND Clinical Nurse Specialist Adult Health | DX: M25.562 Pain in left knee (principal) ==

== ENCOUNTER → 2019-03-18 | Outpatient (CLI) | payer OTHER | LOC: EMCIMAGING 10:54 ==